=== PATIENT | female | born 1950 | race Two or more races ===

== ENCOUNTER 2020-01-18 06:42 | Day surgery (SDC) | payer OTHER ==
[~2020-01-18 06:42] MED LIST: ATACAND32 MG PO; CLONAZEPAM0.5 MG PO; ECOTRIN81 MG PO; EFFEXOR XR150 MG PO; JANUVIA100 MG PO; LIPITOR20 MG PO; METFORMIN HCL1000 M2 PO; PROZAC10 MG PO; RESTORIL15 MG PO; TOPROL XL100 M1 PO
[2020-01-18] MEDS ORDERED: KEFLEX250 MG PO (11:37)
[2020-01-18] MEDS ORDERED: ULTRACET PO (11:37)
== END 2020-01-18 14:40 | disposition home or self-care (01) ==
LOC: CIR.AMB 06:42
PROVIDERS: ATTEND Obstetrics & Gynecology Gynecology
DX: N39.41 Urge incontinence (principal); N32.81 Overactive bladder; Z20.828 Contact with and (suspected) exposure to other viral communicable diseases
CPT/HCPCS: 64590; 64581; 95972; C1778; L8679

== ENCOUNTER 2020-05-09 05:35 | Day surgery (SDC) | payer OTHER ==
[~2020-05-09 05:35] MED LIST changes: +KEFLEX250 MG PO; +ULTRACET PO
[2020-05-09] MEDS ORDERED: ULTRACET PO (09:25)
[2020-05-09] MEDS ORDERED: KEFLEX750 MG PO (09:25)
== END 2020-05-09 12:12 | disposition home or self-care (01) ==
LOC: CIR.AMB 05:35
PROVIDERS: ATTEND Obstetrics & Gynecology Gynecology
DX: N39.41 Urge incontinence (principal); N32.81 Overactive bladder; T85.890A Other specified complication of nervous system prosthetic devices, implants and grafts, initial encounter; Z20.822 Contact with and (suspected) exposure to COVID-19
CPT/HCPCS: 64581; C1778